=== PATIENT | female | born 1960 | race Native Hawaiian/Other Pacific Islander ===

== ENCOUNTER 2020-09-24 16:51 | Emergency (ER) | payer OTHER ==
[~2020-09-24] VITALS: Ht 172.7 cm; Wt 59.9 kg
[2020-09-24 17:00] VITALS: BP 117/60; TEMP 97.7
[2020-09-24 17:12] LABS: PLATELET COUNT 148 K/uL (152-353)
[2020-09-24 17:43] LABS: POTASSIUM 4.3 mmol/L (3.6-5.2)
[2020-09-24] MEDS ORDERED: WELLBUTRIN150 MG PO (23:31)
[2020-09-24] MEDS ORDERED: CITALOPRAM40 M1 PO (23:37)
[2020-09-24] MEDS ORDERED: CYAN10009 IM (23:40)
[2020-09-24] MEDS ORDERED: [UNRECOGNIZED DRUG - OTHER] PO (23:41)
[2020-09-24] MEDS ORDERED: DIVALPROEX500 M1 PO (23:47)
[2020-09-24] MEDS ORDERED: DONEPEZIL HYDRO10 M1 PO (23:53)
[2020-09-24] MEDS ORDERED: LORA0.5T17 PO (23:56)
[2020-09-24] MEDS ORDERED: MEMA5TAB PO (23:59)
[2020-09-25] MEDS ORDERED: NUEDEXTA PO (00:06)
[2020-09-25] MEDS ORDERED: DIVA250T PO (00:07)
[2020-09-25] MEDS ORDERED: TYLENOL325 MG PO (00:12)
[2020-09-25] MEDS ORDERED: MELATONIN3 M1 PO (00:15)
[2020-09-25] MEDS ORDERED: TRAMADOL HYDROC50 MG PO (00:17)
[2020-09-25] MEDS ORDERED: FURO20TA67 PO (00:18)
[2020-09-25] MEDS ORDERED: LORA2INJ21 INJ (00:20)
== END 2020-09-24 18:39 | disposition other institution (70) ==
LOC: ED 16:51
PROVIDERS: Family Medicine
DX: F03.91 Unspecified dementia, unspecified severity, with behavioral disturbance (principal); Z11.52 Encounter for screening for COVID-19; Z04.6 Encounter for general psychiatric examination, requested by authority
CPT/HCPCS: 80053; 85027; 87635; 93005; 99283; U0003